=== PATIENT | female | born 1995 | race Caucasian/White ===

== ENCOUNTER 2016-07-10 22:50 | Emergency (ER) | payer OTHER ==
[~2016-07-10] VITALS: Ht 165.1 cm; Wt 150.0 kg
[2016-07-11] MEDS ORDERED: HYDROCODONE/ACETAMINOPHEN 5-325 MG TABLET PO ONE (01:45)
[2016-07-11] MEDS ORDERED: KETOROLAC TROMETHAMINE 60 MG/2 ML VIAL IM ONE (01:45)
[2016-07-11 02:06] VITALS: BP 128/73
== END 2016-07-11 02:17 | disposition home or self-care (01) ==
LOC: EMS 22:52
DX: K04.7 Periapical abscess without sinus (principal); K05.10 Chronic gingivitis, plaque induced
CPT/HCPCS: 96372; 99283; J1885

== ENCOUNTER 2018-08-11 12:19 | Emergency (ER) | payer OTHER ==
[~2018-08-11] VITALS: Ht 170.2 cm; Wt 127.3 kg
[2018-08-11] MEDS ORDERED: BECL10.62 IH (12:57)
[2018-08-11] MEDS ORDERED: ALBU8.5H8 IH (12:57)
[2018-08-11] MEDS ORDERED: ALBUTEROL SULFATE 2.5 MG/0.5 ML NEB SOLUTION NEB ONE (13:45)
[2018-08-11] MEDS ORDERED: PredniSONE 20 MG TABLET PO ONE (13:45)
[2018-08-11] MEDS ORDERED: 0.9% SODIUM CHLORIDE 5 ML NEB SOLUTION NEB ONE (13:58)
[2018-08-11] MEDS ORDERED: IPRATROPIUM BROMIDE 0.5 MG/2.5 ML NEB SOLUTION NEB ONE (14:45)
[2018-08-11] MEDS ORDERED: ALBUTEROL SULFATE 5 MG/ML 20 ML NEB SOLN [BULK] NEB ONE (14:45)
[2018-08-11 15:47] VITALS: BP 135/88
== END 2018-08-11 15:49 | disposition home or self-care (01) ==
LOC: EMS 12:20
DX: J45.901 Unspecified asthma with (acute) exacerbation (principal); J18.9 Pneumonia, unspecified organism; Z79.899 Other long term (current) drug therapy
CPT/HCPCS: 71045; 81025; 94640; 99284; J7512